=== PATIENT | male | born 1980 | race African-American/Black ===

== ENCOUNTER 2025-02-04 16:54 | Emergency (ER) | payer MEDICAID ==
[~2025-02-04] VITALS: Ht 190.5 cm; Wt 96.0 kg
[2025-02-04 17:41] VITALS: O2SAT 100
[2025-02-04 18:16] VITALS: RESP 18
[2025-02-04] MEDS: VISCOUS LIDOCAINE 2% 15 ML UDC MM ONE (18:16)
[2025-02-04] MEDS: IBUPROFEN 600MG TABLET PO ONE (18:16)
[2025-02-04] MEDS ORDERED: CHLO473M13 MT (20:20)
[2025-02-04] MEDS ORDERED: IBUP-1455 MT (20:20)
[2025-02-04 20:33] VITALS: BP 117/71; PULSE 78; TEMP 36.7; O2SAT 98
== END 2025-02-04 20:35 | disposition home or self-care (01) ==
LOC: ER 16:54
DX: B08.5 Enteroviral vesicular pharyngitis (principal); J06.9 Acute upper respiratory infection, unspecified
CPT/HCPCS: 87070; 87430; 99283